=== PATIENT | female | born 1985 | race Caucasian/White ===

== ENCOUNTER 2023-07-15 11:06 | Outpatient (CLI) | payer BC, SELFPAY ==
[2023-07-15 18:09] LABS: Chloride 105 mmol/L (98-107); Sodium 140 mmol/L (136-145)
[2023-07-15 18:11] LABS: Amylase 63 U/L (30-110)
[2023-07-15 18:12] LABS: Alanine Aminotransferase 40 U/L (12-78); Albumin Level 4.5 g/dl (3.5-5.0); Albumin/Globulin Ratio 1.6 (1.1-1.8); Alkaline Phosphatase 70 U/L (38-126); Aspartate Amino Transferase 29 U/L (14-36); Bilirubin,Total 0.6 mg/dl (0.2-1.3); Blood Urea Nitrogen 9 mg/dl (7-17); Carbon Dioxide 30 mmol/L (22.0-30.0); Estimated Glomerular Filt Rate 113 ml/min (>60); GFR (African American) 137 ML/MIN (>60); Globulin 2.8 g/dL (1.3-3.2); Glucose 82 mg/dl (74-100); Lipase 72 U/L (23-300); Total Protein,Serum 7.3 g/dl (6.3-8.2)
[2023-07-15 18:23] LABS: Basophils # 0.1 K/mm3 (0-0.2); Basophils % 1.3 % (0.1-2.0); Eosinophils # 0.1 K/mm3 (0.0-0.4); Eosinophils % 1.5 % (0.1-12.0); Hematocrit 44.5 % (37.0-47.0); Hemoglobin 14.6 g/dL (12.2-16.2); Lymphocytes # 2.8 K/mm3 (0.7-4.5); Lymphocytes % 31.6 % (10-50); Mean Corpuscular HGB Conc 32.8 g/dL (31.8-35.4); Mean Corpuscular Hemoglobin 30.5 pg (27.0-31.2); Mean Corpuscular Volume 93.1 fl (81-99); Mean Platelet Volume 8.3 fl (7.4-10.4); Monocytes # 0.5 K/mm3 (0.1-1.0); Monocytes % 5.9 % (1.7-9.3); Neutrophils # 5.2 K/mm3 (1.8-7.8); Neutrophils % 59.7 % (37.0-80.0); Platelet Count 330 K/mm3 (142-424); Red Blood Count 4.78 M/mm3 (4.20-5.40); Red Cell Distribution Width 13.1 % (11.5-17.5); White Blood Count 8.7 K/mm3 (4.8-10.8)
[2023-07-15 18:43] LABS: Thyroid Stimulating Hormone 2.81 uIU/mL (0.465-4.68)
[2023-07-15 19:59] LABS: Vitamin B12 588 pg/mL (239-931)
== END 2023-07-15 23:59 ==
LOC: LAB.DROPOF 07-21 11:06
PROVIDERS: PCP Nurse Practitioner; Visit Provider Nurse Practitioner
DX: R10.13 Epigastric pain (principal); R10.9 Unspecified abdominal pain; K21.9 Gastro-esophageal reflux disease without esophagitis; Z87.898 Personal history of other specified conditions; Z79.899 Other long term (current) drug therapy
CPT/HCPCS: 80053; 82150; 82607; 83690; 84443; 85025; 87086

== ENCOUNTER 2023-07-16 19:11 | Outpatient (CLI) | payer BC, SELFPAY ==
[2023-07-19 13:37] LABS: H. pylori Stool Ag, EIA Negative (Negative)
== END 2023-07-16 23:59 ==
LOC: LAB.DROPOF 19:12
PROVIDERS: PCP Nurse Practitioner; Visit Provider Nurse Practitioner
DX: R10.13 Epigastric pain (principal)
CPT/HCPCS: 87338

== ENCOUNTER 2023-07-22 09:16 | Outpatient (CLI) | payer BC, SELFPAY ==
--- NOTE | 2023-07-22 09:16 | US_ITS ---
FINAL REPORT CLINICAL HISTORY: epigastric pain, history ulcer, GERD FINDINGS: RIGHT UPPER QUADRANT ULTRASOUND Sonographic images of the right upper quadrant were obtained. The pancreas is partially obscured.The liver has an unremarkable appearance. There are gallstones in the dependent portion of the gallbladder. The common duct measures 2 mm. Limited images of the right kidney are normal. IMPRESSION: Cholelithiasis. Reviewed, Interpreted and Dictated by Ravi Sommer MD Transcribed by Ami Salazar Authenticated and [facility]
== END 2023-07-22 23:59 ==
LOC: RAD 09:16
PROVIDERS: PCP Nurse Practitioner; Visit Provider Nurse Practitioner
DX: R10.13 Epigastric pain (principal); K21.9 Gastro-esophageal reflux disease without esophagitis; Z87.898 Personal history of other specified conditions
CPT/HCPCS: 76705

== ENCOUNTER 2023-08-20 08:43 | Day surgery (SDC) | payer BC, SELFPAY ==
[2023-08-20] VITALS (11 sets, daily range): BP systolic 117–146; BP diastolic 64–97; PULSE 66–85; RESP 14–18; TEMP 36.1–43; O2SAT 90–100; BMI 30.9
--- NOTE | 2023-08-20 09:21 | P.PNANES_ITS ---
[facility] Disclaimer: The information contained in this section may have been updated after the patient was seen, as this information can be updated by other users. Medical History Left flank pain GERD (gastroesophageal reflux disease) History of ulcer disease Epigastric pain Surgical History (Updated 08/20/23 @ 08:57 by Reva Guillen RN) History of hysterectomy Hx of hysterectomy Family History Other Anemia Asthma Bleeding disorder Cancer Heart attack Hyperlipidemia Hypertension Kidney disease Thyroid disorder Social History Smoking Status: Current every day smoker tobacco type: e-cigarettes alcohol intake: current alcohol intake frequency: holidays/special occasions only substance use type: denies use current occupational status: employed Travel in the last 8 weeks: None [facility] Anesthesia Checklist Patient Identification Patient Identification: Arm Band Structural Data Admitted From: Home Planned Operative Procedure/s: Laparoscopic Cholecystectomy Consent for Planned Operative Procedure(s) Verified: Yes Verified Documents: Surgical Consent and History and Physical NPO Status Verified Time NPO: 00:00 Additional verifications Anesthesia Reactions: No Airway Assessment Mallampati Score:: Class II C-Spine Mobility Assessed: Yes TMJ Mobility Assessed: Yes Dentition: Good Dentition Neurological Assessment Level of Consciousness: Awake, Alert and Appropriate Anesthesia Plan Anesthesia Risk discussed: Yes Anesthesia Plan: Verified ASA Class: II Anesthesia Type: General
[2023-08-20] MEDS: LACTATED RINGERS 1000ML 1,000 ML 25 ML IV (09:25)
[2023-08-20] MEDS: LIDOCAINE 1% 20ML MDV 20 ML (10:31)
[2023-08-20] MEDS: CEFAZOLIN SODIUM 1 GM in 0.9 % SODIUM CHLORIDE 50 ML IV (10:31)
--- NOTE | 2023-08-20 10:37 | EXP.OP.NOTE ---
Date of procedure: 08/20/23 Pre-op Diagnosis:: Chronic calculus cholecystitis Post-op Diagnosis:: Same Procedure performed:: Laparoscopic cholecystectomy Surgeon:: Osorio Kirkpatrick MD SYSTEMS TECHNOLOGIST:: Xavier Winters Anesthesia: GETA Estimated blood loss (mL): 15 Operative findings:: Moderate pericholecystic fat stranding Operative note:: After informed consent was obtained, the patient was taken to the operating room and placed in the supine position. General anesthesia was induced and the abdomen was prepped and draped in a sterile fashion. After infiltration with local anesthetic an infraumbilical incision was made. A Veress needle was placed in position. The abdomen was insufflated. A 5 mm optical trocar was placed in position. Under direct visualization, a 12 mm trocar was placed in the subxiphoid position and 2 additional 5 mm trocars were placed in the right upper quadrant. The gallbladder was elevated up and over the liver margin. The tissue around the cystic duct was carefully dissected. 3 clips were placed proximally and the duct was transected with harmonic whitney. Harmonic whitney were then utilized to dissect the gallbladder away from the liver margin with careful attention to the control of the cystic artery. The gallbladder was placed in a retrieval bag and removed through the subxiphoid trocar site. The right upper quadrant was thoroughly irrigated. No active bleeding or bile leak was noted. Fascia at the subxiphoid trocar site was reapproximated utilizing the NeoClose device. The remaining trocars were removed. All wounds were irrigated and skin was closed with 4-0 Monocryl in a subcuticular fashion. Steri-Strips were applied. The patient's anesthetic agents were reversed and extubation was completed prior to transfer to recovery in stable condition. Condition: stable Disposition: PACU Specimens:: Gallbladder Complications:: No immediate
--- NOTE | 2023-08-20 10:47 | P.PNANES_ITS ---
[facility] Anesthesia Record Part I Anesthesia Record I Intake, IV Amount: 1,800 Hydration: Adequate Estimated blood loss (mL): 0 Urine output (mL): 0 Blood Pressure: 144/97 SaO2: 93 Pulse Rate: 74 Airway Patency: Patent Respiratory Rate: 14 Temperature: 97.5 F Patient is:: Awake and Stable Stable to PACU at:: 10:45
[2023-08-20] MEDS: MEPERIDINE 25MG/ML 1ML SYRINGE 25 MG IV (10:58)
[2023-08-20] MEDS: MORPHINE 2MG/ML SYRINGE 2 MG IV (11:03)
--- NOTE | 2023-08-20 12:28 | EXP.ANES.II ---
[facility] Anesthesia Record Part II Anesthesia Record Part II Discharge Time: 11:15 Destination: Surgical Day Care (OP Surgery) PACU nurse assessment reviewed?: Yes Patient Condition:: Good Anesthesia Complications:: None Swallowing reflex intact?: Yes Airway Patency: Patent Cyanosis?: No Blood Pressure: 123/64 SaO2: 100 Respiratory Rate: 16 Pulse Rate: 72 Temperature: 97 F Mental Status: Alert & Oriented Pain level:: 6 Nausea and/or vomitting:: None Intake, IV Amount: 0 Hydration: Adequate
== END 2023-08-20 11:45 | disposition home or self-care (01) ==
PROVIDERS: PCP Nurse Practitioner; Visit Provider Surgery
PROC: 0FT44ZZ Resection of Gallbladder, Percutaneous Endoscopic Approach (ICD-10-PCS; CPT 47562; principal; 2023-08-20 10:15)
DX: K81.2 Acute cholecystitis with chronic cholecystitis (principal)
CPT/HCPCS: 47562; 96374; J2405; J2710

== ENCOUNTER 2023-09-02 09:43 | Outpatient (CLI) | payer BC, SELFPAY ==
[2023-09-02 10:05] VITALS: BP 129/81; PULSE 76; RESP 18; TEMP 36.8; O2SAT 99
[2023-09-02] MEDS: KETOROLAC 30MG/ML VIAL 15 MG IM (10:05)
[2023-09-02] MEDS: ONDANSETRON 4MG ODT 4 MG (10:19)
== END 2023-09-02 10:50 | disposition home or self-care (01) ==
LOC: INF 09:47
PROVIDERS: PCP Nurse Practitioner; Visit Provider Surgery
DX: R10.13 Epigastric pain (principal); K80.12 Calculus of gallbladder with acute and chronic cholecystitis without obstruction; G89.18 Other acute postprocedural pain
CPT/HCPCS: 96372

== ENCOUNTER 2023-09-10 06:03 | Day surgery (SDC) | payer BC, SELFPAY ==
[2023-09-09 10:54] VITALS: BMI 30.9
[2023-09-10] VITALS (9 sets, daily range): BP systolic 107–122; BP diastolic 69–79; PULSE 63–74; RESP 16–18; TEMP 36.2–36.9; O2SAT 94–100
[2023-09-10] MEDS: LACTATED RINGERS 1000ML 1,000 ML 25 ML IV (06:23)
--- NOTE | 2023-09-10 06:59 | HMH.SCOPE ---
Procedure: Date: 09/10/23 Patient Date of :: 1985 Procedure Performed:: Esophagogastroduodenoscopy with biopsy Indications:: Epigastric pain Nausea History of peptic ulcer disease Performing Provider:: Osorio Kirkpatrick MD Referring Provider:: . Sedation:: Monitored anesthesia care Procedure:: After informed consent was obtained the patient was taken to the endoscopy suite. Sedation ensued after the patient was transferred to the left lateral decubitus position. Pulse, blood pressure, and oxygen saturation were monitored throughout the procedure. The endoscope was advanced beyond the duodenal bulb. Retroflexion within the gastric lumen was accomplished. The gastroscope was carefully removed and the patient was transferred to recovery in stable condition. Please see findings and specimens below for detail. Findings:: Mildly tortuous esophagus Mild/moderate distal gastritis Mild proximal duodenitis Specimens:: Antral biopsy Recommendations:: Follow-up pathology Continue proton pump inhibition CBC/CMP/amylase/lipase ordered today (note recent laparoscopic cholecystectomy) Consider UGI/SBFT Consider gastric emptying scan Consider gastroenterology evaluation Consider CT abdomen/pelvis with contrast Complications:: No immediate Estimated blood obtained (mL): 1 Colonoscopy Component Colonoscopy Component Was a colonoscopy performed during today's procedure?: No
--- NOTE | 2023-09-10 07:36 | EXP.ANES.CKL ---
[facility] Disclaimer: The information contained in this section may have been updated after the patient was seen, as this information can be updated by other users. Medical History Epigastric pain Left flank pain GERD (gastroesophageal reflux disease) History of ulcer disease Surgical History History of laparoscopic cholecystectomy History of hysterectomy Hx of hysterectomy Family History Other Anemia Asthma Bleeding disorder Cancer Heart attack Hyperlipidemia Hypertension Kidney disease Thyroid disorder Social History Smoking Status: Former smoker tobacco type: e-cigarettes alcohol intake: never substance use type: denies use current occupational status: employed Travel in the last 8 weeks: None caffeine: No [facility] Anesthesia Checklist Patient Identification Patient Identification: Arm Band Structural Data Admitted From: Home Planned Operative Procedure/s: EGD Consent for Planned Operative Procedure(s) Verified: Yes Verified Documents: Surgical Consent and History and Physical NPO Status Verified Time NPO: 00:00 Additional verifications Anesthesia Reactions: No Hx Blood Transfusions: No Airway Assessment Mallampati Score:: Class II C-Spine Mobility Assessed: Yes TMJ Mobility Assessed: Yes Dentition: Good Dentition Neurological Assessment Level of Consciousness: Awake, Alert and Appropriate Anesthesia Plan Anesthesia Risk discussed: Yes Anesthesia Plan: Verified ASA Class: I Anesthesia Type: MAC
--- NOTE | 2023-09-10 07:38 | SUR.PHASEII ---
lab at bedside for blood work ordered by Dr. Kirkpatrick.
[2023-09-10 08:02] LABS: Basophils # 0.1 K/mm3 (0-0.2); Basophils % 1.3 % (0.1-2.0); Eosinophils # 0.1 K/mm3 (0.0-0.4); Eosinophils % 2.5 % (0.1-12.0); Hematocrit 39.9 % (37.0-47.0); Hemoglobin 12.8 g/dL (12.2-16.2); Lymphocytes # 2.1 K/mm3 (0.7-4.5); Lymphocytes % 37.3 % (10-50); Mean Corpuscular Hemoglobin 29.4 pg (27.0-31.2); Mean Platelet Volume 7.8 fl (7.4-10.4); Monocytes # 0.3 K/mm3 (0.1-1.0); Monocytes % 5.1 % (1.7-9.3); Neutrophils # 3.1 K/mm3 (1.8-7.8); Neutrophils % 53.9 % (37.0-80.0); Platelet Count 293 K/mm3 (142-424); Red Blood Count 4.34 M/mm3 (4.20-5.40); Red Cell Distribution Width 13.3 % (11.5-17.5); White Blood Count 5.7 K/mm3 (4.8-10.8)
[2023-09-10 08:15] LABS: Alanine Aminotransferase 26 U/L (12-78); Albumin/Globulin Ratio 1.4 (1.1-1.8); Alkaline Phosphatase 67 U/L (38-126); Amylase 65 U/L (30-110); Anion Gap 11.6 mEq/L (5-15); Aspartate Amino Transferase 24 U/L (14-36); Bilirubin,Total 0.8 mg/dl (0.2-1.3); Blood Urea Nitrogen 9 mg/dl (7-17); Calcium 9.1 mg/dl (8.4-10.2); Carbon Dioxide 26 mmol/L (22.0-30.0); Chloride 105 mmol/L (98-107); Creatinine Clearance Estimated 167 mL/min (50-200); Estimated Glomerular Filt Rate 113 ml/min (>60); GFR (African American) 137 ML/MIN (>60); Globulin 2.8 g/dL (1.3-3.2); Glucose 106 mg/dl (74-100); Lipase 71 U/L (23-300); Potassium 3.6 mmoL/L (3.5-5.1); Sodium 139 mmol/L (136-145); Total Protein,Serum 6.8 g/dl (6.3-8.2)
== END 2023-09-10 08:29 | disposition home or self-care (01) ==
PROVIDERS: PCP Nurse Practitioner; Visit Provider Surgery
PROC: 0DJ08ZZ Inspection of Upper Intestinal Tract, Via Natural or Artificial Opening Endoscopic (ICD-10-PCS; CPT 43235; principal; 2023-09-10 07:00)
DX: R10.13 Epigastric pain (principal); R11.0 Nausea; Z87.11 Personal history of peptic ulcer disease; K22.89 Other specified disease of esophagus; K29.70 Gastritis, unspecified, without bleeding; K29.80 Duodenitis without bleeding; K31.89 Other diseases of stomach and duodenum
CPT/HCPCS: 43239; 36415; 80053; 82150; 83690; 85025

== ENCOUNTER 2023-09-25 09:50 | Outpatient (CLI) | payer BC, SELFPAY ==
--- NOTE | 2023-09-25 09:51 | FL_ITS ---
FINAL REPORT CLINICAL HISTORY: dysphagia, pt feels like food gets stuck 2.38 min DAP 1737.99 FINDINGS: UPPER GI WITH SBFT HISTORY: Abdominal pain, nausea. PROCEDURE: The patient ingested barium. Effervescent crystals were also administered. Spot and overhead films were obtained. Additional barium was administered for a SBFT. Number of images: 19 Fluoro time: 1 minute 43 seconds DAP: 2664.00 uGym2. FINDINGS: UGI: The esophagus is normal. There is no hiatal hernia. There is no gastroesophageal reflux. A 13 mm barium tablet passes through the esophagus and into the stomach without delay. Peristalsis is normal. The rugal fold pattern of the stomach is normal. The duodenal bulb is normal. SBFT: The customer experience analyst film is normal. There is no evidence of obstruction. The mucosal fold pattern is normal. The terminal ilium is normal. IMPRESSION: Normal UGI/SBFT. Films reviewed , interpreted and dictated by Dr. Thorpe. Transcribed by Fritz Field PA-C Reviewed, Interpreted and Dictated by Alvaro Thorpe MD Transcribed by MELISSA Trivedi Authenticated and [facility]
--- NOTE | 2023-09-25 09:51 | FL_ITS ---
FINAL REPORT CLINICAL HISTORY: pain, burning sensation, hx of [place] 1 mnth ago 1.43 min DAP 2664.00 FINDINGS: UPPER GI WITH SBFT HISTORY: Abdominal pain, nausea. PROCEDURE: The patient ingested barium. Effervescent crystals were also administered. Spot and overhead films were obtained. Additional barium was administered for a SBFT. Number of images: 19 Fluoro time: 1 minute 43 seconds DAP: 2664.00 uGym2. FINDINGS: UGI: The esophagus is normal. There is no hiatal hernia. There is no gastroesophageal reflux. A 13 mm barium tablet passes through the esophagus and into the stomach without delay. Peristalsis is normal. The rugal fold pattern of the stomach is normal. The duodenal bulb is normal. SBFT: The project management manager film is normal. There is no evidence of obstruction. The mucosal fold pattern is normal. The terminal ilium is normal. IMPRESSION: Normal UGI/SBFT. Films reviewed , interpreted and dictated by Dr. Thorpe. Transcribed by Fritz Field PA-C. Reviewed, Interpreted and Dictated by Ravi Sommer MD Transcribed by MELISSA Trivedi Authenticated and [facility]
[2023-09-25] MEDS: DIATRIZOATE MEG 66% & DIATRIZOATE NA 10% 30ML UDC 15 ML PO (10:31)
[2023-09-25] MEDS: E-Z-GASII EFFERVESCENT GRANULES;1PK 1 EACH PO (10:31)
[2023-09-25] MEDS: BARIUM SULFATE (E-Z-HD 340GM);135ML BOTTLE 135 ML PO (10:31)
[2023-09-25] MEDS: BARIUM SULFATE(LIQUID E-Z-PAQUE);355ML BOTTLE 355 ML PO (10:31)
== END 2023-09-25 23:59 | disposition home or self-care (01) ==
LOC: RAD 09:51
PROVIDERS: PCP Nurse Practitioner; Visit Provider Surgery
DX: R10.13 Epigastric pain (principal); K21.9 Gastro-esophageal reflux disease without esophagitis; R11.0 Nausea
CPT/HCPCS: 74220; 74246; 74248

== ENCOUNTER 2023-10-06 09:47 | Outpatient (CLI) | payer BC, SELFPAY ==
--- NOTE | 2023-10-06 09:47 | NM_ITS ---
FINAL REPORT TECHNIQUE: 0.53 Millicuries of technetium 99m sulfur colloid was ingested with 2 eggs, toast and water. CLINICAL HISTORY: nausea, BLOATING 10:00AM 0.53 MCI TC SULFUR COLLOID INJ INTO 2 EGGS, TOAST AND WATER FINDINGS: GASTRIC EMPTYING SCAN Static images show normal emptying of the stomach into the small bowel. Based on the time activity curve, the estimated half-emptying time 127 minutes minutes. IMPRESSION: Abnormally long gastric emptying study. Reviewed, Interpreted and Dictated by Zay Dunbar III, MD Transcribed by Ami Salazar Authenticated and [facility]
[2023-10-06] MEDS: TC99M SULF.COLLOID;1 DOSE (UP TO 20 MCI) IV (10:04)
== END 2023-10-06 23:59 | disposition home or self-care (01) ==
LOC: RAD 09:47
PROVIDERS: PCP Nurse Practitioner; Visit Provider Surgery
DX: R10.13 Epigastric pain (principal); K21.9 Gastro-esophageal reflux disease without esophagitis
CPT/HCPCS: 78264; A9541

== ENCOUNTER 2023-10-09 09:20 | Emergency (ER) | payer BC, SELFPAY ==
--- NOTE | 2023-10-09 09:19 | ECG_ITS ---
APPROVED REPORT Exam: Resting ECG HR:81 bpm ECG Measurements Heart Rate 81 AXES CA 171 P 45 QRSd 85 QRS 2 QT 363 T 4 QTc 400 Conclusion SINUS RHYTHM WITH SINUS ARRHYTHMIA LOW QRS VOLTAGE IN PRECORDIAL LEADS [QRS DEFLECTION < 1.0 mV IN CHEST LEADS] BORDERLINE ECG Electronically signed by : NELSON TRAN, 10/10/2023 07:20:14
[2023-10-09 09:20] VITALS: BP 157/101; PULSE 83; RESP 18; TEMP 36.7; O2SAT 99; BMI 29.2
--- NOTE | 2023-10-09 09:23 | XR_ITS ---
FINAL REPORT CLINICAL HISTORY: chest pain COMPARISON: None FINDINGS: A single portable view of the chest was obtained. The heart size and pulmonary vascularity are within normal limits. The mediastinum is within normal limits. There is a medial right lower thorax opacity, atelectasis versus a prominent fat pad. There is slight elevation of the right hemidiaphragm. The bony thorax is intact. IMPRESSION: Medial right lower thorax opacity, atelectasis versus a prominent fat pad. Follow-up radiographs may be helpful. Otherwise no active chest disease. Reviewed, Interpreted and Dictated by Zay Dunbar III, MD Transcribed by Brianda Ramriez Authenticated and . [facility]
--- NOTE | 2023-10-09 09:25 | HMH.EDGENADL ---
Discharge Plan Disposition Patient Disposition: Home, Self-Care Condition: Good Prescriptions Prescriptions: New lidocaine HCl [Lidocaine Viscous] 2 % solution 1 applic mucous membrane BID PRN (Reason: pain) 5 Days Qty: 100 0RF No Action metoclopramide HCl [Reglan] 5 mg tablet 5 mg PO QAC Qty: 90 0RF Rx Instructions: administer 30 minutes before meals sucralfate 1 gram tablet 1 g PO QAC Qty: 90 2RF ondansetron HCl 4 mg tablet 4 mg PO DAILY Qty: 15 0RF Voquezna 20 mg tablet 20 mg PO DAILY Qty: 30 0RF omeprazole 40 mg capsule,delayed release(DR/EC) 40 mg PO DAILY Qty: 30 2RF fexofenadine [Frannie Allergy] 60 mg Tablet 60 mg PO DAILY hyoscyamine sulfate 0.125 mg tablet See Rx Instructions .ROUTE .COMPLEX PRN (Reason: .) Rx Instructions: TAKE 1 TABLET BY MOUTH FOUR TIMES DAILY NEEDED FOR DIARRHEA OR ABDOMINAL CRAMPS Referrals Follow up/Referrals: Kerry Quintanilla APRN [Primary Care Provider] - See instructions Activity Restrictions/Add. Instructions Additional Instructions/Restrictions: Please continue to use the medications that you have previously been prescribed for suspected gastroparesis, Carafate, Quinsair, omeprazole, Reglan. I have prescribed an additional medication to use as needed that you can use for breakthrough pain that is a numbing medication for your stomach. Please follow-up with the GI doctors on Thursday. Please return with any new or worsening symptoms. Clinical Impressions Clinical Impression: Acute chest pain, Epigastric pain Instructions Patient Instructions: DI for Epigastric Pain Discharge ED Provider: Jun Cassidy General Adult HPI General Chief complaint: Chest Pain Stated complaint: Chest Pain, Dizzy Time Seen by Provider: 10/09/23 09:22 History of Present Illness HPI narrative: The patient presents with chest pain, lightheadedness, and stomach pain that began around 6:00 AM this morning. The pain started as dull but has since worsened. She has experienced similar issues in the past, but this episode has not resolved. The pain is located in the center of the chest and does not radiate. The patient describes the pain as sharp at times, with a wave-like sensation, sometimes lingering and then feeling like a squeezing sensation. No specific factors have been identified that alleviate or exacerbate the pain. The patient also reports nausea and vomiting, with mouth watering as if she had vomited. She had gallbladder surgery at the end of July and was recently diagnosed with gastroparesis. The patient had an appointment with Dr. Conway on Thursday and was prescribed new medication, which she has not yet started due to pharmacy issues. The patient denies any fever or chills and did not feel sick the day before the visit. Please note that above description of symptoms, in this electronic medical record under categorization of recalled from ER triage doctor by RN are reflective of an initial nursing assessment, however, is not reflective of my full history and physical exam that was personally taken and clarified. Consequentially, this preceding description of symptoms, which may include the patient's categorized chief complaint in the EMR, do not reflect my personal clinical impression, and the ultimate description of history of present illness and patient stated complaints should be deferred to this section of the note. Unless stated otherwise or congruent with this section of the note, additional signs, symptoms, or incongruence should be interpreted as inaccurate with my clinical impression. Related Data Home Medications Medication Instructions Recorded Confirmed fexofenadine 60 mg tablet (Frannie 60 mg PO DAILY 08/20/23 10/07/23 Allergy) hyoscyamine sulfate 0.125 mg tablet See Rx Instructions .Route 09/09/23 10/07/23 .COMPLEX PRN . Previous Rx's Medication Instructions Recorded sucralfate 1 gram tablet 1 g PO QAC #90 tabs 07/15/23 omeprazole 40 mg capsule,delayed 40 mg PO DAILY #30 caps 07/23/23 release ondansetron HCl 4 mg tablet 4 mg PO DAILY #15 tabs 09/02/23 vonoprazan 20 mg tablet (Voquezna) 20 mg PO DAILY #30 tabs 09/16/23 metoclopramide HCl 5 mg tablet 5 mg PO QAC #90 tabs 10/07/23 (Reglan) lidocaine HCl 2 % mucosal solution 1 applic mucous membrane BID PRN 10/09/23 (Lidocaine Viscous) pain 5 days #100 mL Allergies Allergy/AdvReac Type Severity Reaction Status Date / Time hydrocodone Allergy Severe Altered Verified 10/07/23 10:56 Sense of Taste [facility] Disclaimer: The information contained in this section may have been updated after the patient was seen, as this information can be updated by other users. Medical History Epigastric pain Left flank pain GERD (gastroesophageal reflux disease) History of ulcer disease Surgical History History of esophagogastroduodenoscopy (EGD) History of laparoscopic cholecystectomy History of hysterectomy Hx of hysterectomy Family History Other Anemia Asthma Bleeding disorder Cancer Heart attack Hyperlipidemia Hypertension Kidney disease Thyroid disorder Social History Smoking Status: Current every day smoker tobacco type: e-cigarettes alcohol intake: never substance use type: denies use current occupational status: employed Travel in the last 8 weeks: None caffeine: No ROS Obtained: Yes other As per HPI Physical Exam General General appearance: alert and in no apparent distress Head Head exam: atraumatic and normocephalic Eye Eye exam: Present normal appearance Neck Neck exam: Present normal inspection Chest Chest inspection: Present normal inspection and symmetric chest wall rise Respiratory Respiratory exam: Present normal lung sounds bilaterally; Absent respiratory distress Cardiovascular Cardiovascular exam: Present regular rate and normal rhythm Abdominal Exam Abdominal exam: Present soft Neurological Exam Neurological exam: Present alert and oriented X3 Psychiatric Psychiatric exam: Present normal affect and normal mood Skin Skin exam: Present warm and dry Other Other exam information: Mild epigastric, left upper quadrant tenderness to palpation, no guarding, rebound tenderness, rigidity, distention, no chest wall reproducible tenderness to palpation. Lungs clear to auscultation bilaterally. Medical Decision Making Medical Records Medical records reviewed: Yes I reviewed the patient's medical records. [place] Inquiry Pt receiving controlled substance: No Vital Signs: 10/09/23 09:20 10/09/23 09:31 10/09/23 10:01 Temperature 98.1 F Temperature Source Oral Pulse Rate 79 89 Pulse Rate [Right] 83 Respiratory Rate 18 Blood Pressure 142/73 H 124/89 Blood Pressure [Right Arm] 157/101 H Blood Pressure Mean [Right Arm] 119 02 Sat by Pulse Oximetry 99 100 97 Oxygen Delivery Method Room Air Room Air 10/09/23 11:09 Temperature 98.1 F Temperature Source Oral Pulse Rate 75 Pulse Rate [Right] Respiratory Rate 16 Blood Pressure 101/62 L Blood Pressure [Right Arm] Blood Pressure Mean [Right Arm] 02 Sat by Pulse Oximetry Oxygen Delivery Method Room Air Lab Data Lab Results 10/09/23 09:30: WBC 7.1, RBC 4.84, Hgb 14.4, Hct 43.8, MCV 90.6, MCH 29.7, MCHC 32.8, RDW 13.4, Plt Count 297, MPV 7.9, Neut % (Auto) 66.8, Lymph % (Auto) 25.5, [place] % (Auto) 4.9, Eos % (Auto) 1.6, Baso % (Auto) 1.1, Neut # (Auto) 4.7, Lymph # (Auto) 1.8, [place] # (Auto) 0.4, Eos # (Auto) 0.1, Baso # (Auto) 0.1, Sodium 142, Potassium 4.5, Chloride 106, Carbon Dioxide 27, Anion Gap 13.5, BUN 15, Creatinine 0.80, Estimated Creat Clear 118, Estimated GFR 81, Est GFR ( Amer) 98, Glucose 102 H, Calcium 9.2, Total Bilirubin 0.7, AST 31, ALT 41, Alkaline Phosphatase 77, Troponin I < 0.01, Total Protein 8.0, Albumin 4.6, Globulin 3.4 H, Albumin/Globulin Ratio 1.4, Lipase 61, Serum HCG, Qual Negative 10/09/23 09:30 10/09/23 09:30 Orders (Tests/Meds): ED MEDICATIONS Discontinued Medications Generic Name Dose Route Start Last Admin Trade Name Freq PRN Reason Stop Dose Admin Aspirin 325 mg 10/09/23 09:23 10/09/23 09:36 Aspirin 325mg Tablet PO 10/09/23 09:24 325 mg ONCE ONE Administration Belladonna Alkaloids 60 ml 10/09/23 09:23 10/09/23 09:36 Belladonna Alkaloids 60 Ml Ml PO 10/09/23 09:24 60 ml ONCE ONE Administration Ondansetron HCl 4 mg 10/09/23 09:23 10/09/23 09:36 Ondansetron 4mg/2ml Vial IV 10/09/23 09:24 4 mg ONCE ONE Administration ORDERS Category Date Time Status XR chest portable Stat Exams 10/09/23 09:23 Completed CBC w/Auto Diff [Complete Blood Count Auto Diff] Stat Lab 10/09/23 09:30 Completed CMP [Comprehensive Metabolic Panel] Stat Lab 10/09/23 09:30 Completed HCG Qualitative, Serum Stat Lab 10/09/23 09:30 Completed Lipase Stat Lab 10/09/23 09:30 Completed Troponin I Q3H Lab 10/09/23 09:30 Completed Medical Decision Narrative: Patient with history and exam per above presenting for evaluation of reported chest pain, as well as epigastric abdominal pain Diagnoses considered include ACS, gastroparesis, PUD, low clinical evidence of suspicion for surgical pathology, patient is without sufficient evidence of signs and symptoms concerning for pulmonary embolism to warrant further workup. ED workup and treatment included: ED MEDICATIONS Discontinued Medications Generic Name Dose Route Start Last Admin Trade Name Freq PRN Reason Stop Dose Admin Aspirin 325 mg 10/09/23 09:23 10/09/23 09:36 Aspirin 325mg Tablet PO 10/09/23 09:24 325 mg ONCE ONE Administration Belladonna Alkaloids 60 ml 10/09/23 09:23 10/09/23 09:36 Belladonna Alkaloids 60 Ml Ml PO 10/09/23 09:24 60 ml ONCE ONE Administration Ondansetron HCl 4 mg 10/09/23 09:23 10/09/23 09:36 Ondansetron 4mg/2ml Vial IV 10/09/23 09:24 4 mg ONCE ONE Administration ORDERS Category Date Time Status XR chest portable Stat Exams 10/09/23 09:23 Completed CBC w/Auto Diff [Complete Blood Count Auto Diff] Stat Lab 10/09/23 09:30 Completed CMP [Comprehensive Metabolic Panel] Stat Lab 10/09/23 09:30 Completed HCG Qualitative, Serum Stat Lab 10/09/23 09:30 Completed Lipase Stat Lab 10/09/23 09:30 Completed Troponin I Q3H Lab 10/09/23 09:30 Completed Labs were independently interpreted by me, significant for no acute findings My clinical impression at this time is most consistent with known history of gastroparesis. Patient has mild to moderate improvement of symptoms upon repeat evaluation and again exhibits benign abdominal exam. She has upcoming appointment to discuss results of swallow study and is deemed stable for discharge at this time. I discussed my clinical impression with patient and answered all questions. At this time, the evidence for any other entities in the differential is insufficient to warrant any further testing or ED observation. This was explained to the patient. The patient was advised that persistent or worsening symptoms require further evaluation. I confirmed the patient's understanding of this discussion. Critical Care Critical Care Time Critical Care Time: No
[2023-10-09 09:31] VITALS: BP 142/73; PULSE 79; O2SAT 100
--- NOTE | 2023-10-09 09:35 | PC.NURSE ---
in room talking with patient at this time.
[2023-10-09] MEDS: BELLADONNA ALKALOIDS 60 ML ML PO (09:36)
[2023-10-09] MEDS: ASPIRIN 325MG TABLET 325 MG PO (09:36)
[2023-10-09] MEDS: ONDANSETRON 4MG/2ML VIAL 4 MG IV (09:36)
[2023-10-09 09:41] LABS: Basophils # 0.1 K/mm3 (0-0.2); Basophils % 1.1 % (0.1-2.0); Eosinophils # 0.1 K/mm3 (0.0-0.4); Eosinophils % 1.6 % (0.1-12.0); Hematocrit 43.8 % (37.0-47.0); Hemoglobin 14.4 g/dL (12.2-16.2); Lymphocytes # 1.8 K/mm3 (0.7-4.5); Lymphocytes % 25.5 % (10-50); Mean Corpuscular HGB Conc 32.8 g/dL (31.8-35.4); Mean Corpuscular Hemoglobin 29.7 pg (27.0-31.2); Mean Corpuscular Volume 90.6 fl (81-99); Mean Platelet Volume 7.9 fl (7.4-10.4); Monocytes # 0.4 K/mm3 (0.1-1.0); Monocytes % 4.9 % (1.7-9.3); Neutrophils # 4.7 K/mm3 (1.8-7.8); Neutrophils % 66.8 % (37.0-80.0); Platelet Count 297 K/mm3 (142-424); Red Blood Count 4.84 M/mm3 (4.20-5.40); Red Cell Distribution Width 13.4 % (11.5-17.5); White Blood Count 7.1 K/mm3 (4.8-10.8)
[2023-10-09 09:42] LABS: Chloride 106 mmol/L (98-107); Potassium 4.5 mmoL/L (3.5-5.1); Sodium 142 mmol/L (136-145)
[2023-10-09 09:44] LABS: Alanine Aminotransferase 41 U/L (12-78); Aspartate Amino Transferase 31 U/L (14-36); Blood Urea Nitrogen 15 mg/dl (7-17); Creatinine Clearance Estimated 118 mL/min (50-200); Estimated Glomerular Filt Rate 81 ml/min (>60); GFR (African American) 98 ML/MIN (>60)
[2023-10-09 09:45] LABS: Albumin Level 4.6 g/dl (3.5-5.0); Albumin/Globulin Ratio 1.4 (1.1-1.8); Alkaline Phosphatase 77 U/L (38-126); Anion Gap 13.5 mEq/L (5-15); Bilirubin,Total 0.7 mg/dl (0.2-1.3); Calcium 9.2 mg/dl (8.4-10.2); Carbon Dioxide 27 mmol/L (22.0-30.0); Globulin 3.4 g/dL (1.3-3.2); Glucose 102 mg/dl (74-100); Lipase 61 U/L (23-300)
[2023-10-09 10:01] VITALS: BP 124/89; PULSE 89; O2SAT 97
[2023-10-09 10:03] LABS: Troponin I < 0.01 ng/ml (0.00-0.034)
[2023-10-09 10:10] LABS: HCG Qualitative, Serum Negative (Negative)
[2023-10-09 11:09] VITALS: BP 101/62; PULSE 75; RESP 16; TEMP 36.7; O2SAT 100
== END 2023-10-09 11:16 | disposition home or self-care (01) ==
PROVIDERS: Emergency Provider Emergency Medicine; PCP Nurse Practitioner
DX: R07.89 Other chest pain (principal); R10.13 Epigastric pain
CPT/HCPCS: 71045; 80053; 83690; 84484; 84703; 85025; 93005; 96374; 99284; J2405

== ENCOUNTER 2024-05-23 18:36 | Outpatient (CLI) | payer OTHER, SELFPAY ==
[2024-05-23 18:42] LABS: Coronavirus 19, PCR Not Detected (NotDetected); Human Rhinovirus Not Detected (NotDetected); Influenza B, PCR Not Detected (NotDetected); Respiratory Syncytial Virus Not Detected (NotDetected)
[2024-05-24 01:49] LABS: Influenza A, PCR Detected (NotDetected)
== END 2024-05-23 23:59 | disposition home or self-care (01) ==
LOC: LAB.DROPOF 18:36
PROVIDERS: PCP Nurse Practitioner; Visit Provider Nurse Practitioner
DX: J32.9 Chronic sinusitis, unspecified (principal); Z72.0 Tobacco use
CPT/HCPCS: 87631

== ENCOUNTER 2024-11-14 09:00 | Outpatient (RCR) | payer OTHER, SELFPAY ==
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
== END 2024-11-14 23:59 | disposition home or self-care (01) ==
LOC: PT 09:00
PROVIDERS: PCP Nurse Practitioner; Visit Provider Otolaryngology
DX: S13.9XXA Sprain of joints and ligaments of unspecified parts of neck, initial encounter (principal)
CPT/HCPCS: 97014; 97110; 97140; 97162; 97530; G0283

== ENCOUNTER 2024-11-14 10:00 | Outpatient (RCR) | payer OTHER, SELFPAY ==
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
== END 2024-11-14 23:59 | disposition home or self-care (01) ==
LOC: ST 10:00
PROVIDERS: PCP Nurse Practitioner; Visit Provider Otolaryngology
DX: S03.00XA Dislocation of jaw, unspecified side, initial encounter (principal)
CPT/HCPCS: 92610

== ENCOUNTER 2025-01-02 09:45 | Outpatient (CLI) | payer OTHER, SELFPAY ==
[2025-01-02 14:53] LABS: Coronavirus 19, PCR Not Detected (NotDetected); Influenza A, PCR Not Detected (NotDetected); Influenza B, PCR Not Detected (NotDetected)
--- OUTSIDE RECORDS SUMMARY | 2025-01-03 09:26 | XMS_ITS | Clinical Summary ---
Author Organization [facility] Address [address] [facility] [place] [address] Phone Care Team Providers Care Diesel Electrician Name Role Phone Waleska Bautista MD Primary Care Provider Allergies Active Allergy Reactions Criticality Noted Date Comments Hydrocodone Anaphylaxis 05/31/2009 Medications cetirizine (ZYRTEC) 10 mg Oral Tablet Take by mouth daily. Active naproxen (NAPROSYN) 250 mg Oral Tablet Take 250 mg by mouth 2 times daily. Active magnesium hydroxide (MILK OF MAGNESIA) 400 mg/5 mL Oral Suspension Take 5 mL by mouth daily. Active celecoxib (CELEBREX) 200 mg Oral Capsule Take 200 mg by mouth 2 times daily. Active pantoprazole (PROTONIX) 40 mg Oral Tablet, Delayed Release (E.C.)Indication s:GERD without esophagitis Take 1 Tablet by mouth daily. 90 Tablet 1 4 Active Additional Information Patient not taking.Reason: Therapy Completed, Reported on 10/20/2023 Brompheniramine- Pseudoeph-DM 2-30-10 mg/5 mL Oral SyrupIndications :Acute bacterial sinusitis Take 10 mL by mouth every 4 hours as needed (Cough, Nasal Congestion, Allergies). 240 mL 4 Active Additional Information Patient not taking.Reason: Therapy Completed, Reported on 10/20/2023 ondansetron (ZOFRAN) 4 mg Oral Tablet 4 mg. 4 Active sucralfate (CARAFATE) 1 gram Oral Tablet Take 1 g by mouth Before every meal. Active VOQUEZNA 20 mg Oral Tablet Take 1 Tablet by mouth daily. 4 Active fexofenadine (LAURA) 60 mg Oral Tablet 60 mg. 4 Active metoclopramide HCl (REGLAN) 5 mg Oral Tablet Take 5 mg by mouth. 4 Active Active Problems Patient Care Coordination No te Formatting of this note migh t be different from the original. 06/19/14 no show warning letter sent/[facility] audit completed by Monica Nicole RN on 10/06/2022. Problem Noted Date Diagnosed Date Postoperative nausea 10/20/2023 Left flank pain 10/20/2023 History of ulcer disease 10/20/2023 GERD (gastroesophageal reflux disease) Right upper quadrant pain 10/20/2023 Epigastric pain 10/20/2023 Chronic constipation 10/20/2023 Calculus of gallbladder with acute and chronic cholecystitis without obstruction 10/20/2023 Enlarged uterus 01/05/2020 Overview (01/05/2020): Added automatically from request for surgery [id number] Menometrorrhagia 01/05/2020 Overview (01/05/2020): Added automatically from request for surgery [id number] Severe dysmenorrhea 01/05/2020 Overview (01/05/2020): Added automatically from request for surgery [id number] Seasonal allergies 11/17/2013 Immunizations Immunization Administration Dates Next Due Influenza Patient Reported 02/10/2018 Influenza Vaccine Quadrivalent PF 02/10/2018,,01/04/2014 Surgical History Surgery Date Site/Laterality Comments TUBAL LIGATION HYSTERECTOMY 02/01/2020 Bilateral DAVINCI ROBOTIC TOTAL HYSTERECTOMY BILATERAL SALPINGECTOMY ; Surgeon: Richie Trinh MD; Location: [facility] OR; Service: Robotics CHOLECYSTECTOMY 08/20/2023 N/A Medical History Medical History Date Comments Ulcer stomach- in high school Anemia Allergic state Kidney stone Tubal ligation status Heartburn reflux Headache sinus and migrai zhane Motion sickness GERD (gastroesophageal reflux disease) 10/20/2023 Family History Medical History Relation Name Comments Clotting Disorder Father Cancer Mother Cervical High Blood Pressure Mother High Blood Pressure Sister Relation Name Status Comments Father Alive Mother Alive Sister Social History Tobacco Use Types Packs/Day Years Used Date Smoking Tobacco: Former Cigarettes 0.3 4 0 04/27/2009 - 07/27/2023 Smokeless Tobacco: Never Tobacco Cessation:Counseling Given: No Alcohol Use Standard Drinks/Week Comments Yes 0 (1 standard drink = 0.6 oz pur e alcohol) occasionally PHQ-2 Answer Date Recorded PHQ-2 Total Score 0 11/20/2020 Sexually Active Control Partners Comments Yes Other-see comments Male Nuva Ring Comments No Sex and Gender Information Value Date Recorded Sex Assigned at Not on file Legal Sex Female 11:24 PM EDT Gender Identity Not on file Sexual Orientation Not on file Obstetrics History Para Term AB IAB SAB Ectopic Multiple Livin g Live Births 2 1 1 1 Date Outcome GA Total Labor Labor/2nd/3rd Weight Sex Type Anes PTL Lynne A1 A5 Name Clin Para Vag-Spo nt SAB Last Filed Vital Signs Vital Sign Reading Time Taken Comments Blood Pressure 112/84 10/20/2023 5:49 PM EDT Pulse 88 10/20/2023 5:49 PM EDT Temperature 36.7 C (98 F) 10/20/2023 5:49 PM EDT Respiratory Rate 20 10/20/2023 5:49 PM EDT Oxygen Saturation 97% 10/20/2023 5:49 PM EDT Inhaled Oxygen Concentration - - Weight 82 kg (180 lb 12.8 oz) 10/20/2023 5:49 PM EDT Height 162.6 cm (5' 4 ) 10/20/2023 5:49 PM EDT Body Mass Index 31.03 10/20/2023 5:49 PM EDT Plan of Treatment Health Maintenance Due Date Last Done Comments DTaP/TDaP/Td (1 - Tdap) 2005 Hepatitis B Vaccine (1 of 3 - 19+ 3-dose series) 2005 Annual Wellness Exam 11/10/2014 11/10/2013 (Postpone d) COVID-19 Vaccine ( - 2023- season) 2024 Influenza Vaccine (#1) 2024 8, 02/10/2018, 02/13/2016, Additional history exists Meningococcal B Vaccine Aged Out No l onger eligible based on patient's age to complete this topic Pneumococcal Vaccine 0-49 Aged Out No longer eligible based on patient's age to complete this topic Goals Goal Patient Goal Type Associated Problems Recent Progress Patient-Stated? Author Blood Pressure < 140/90 Blood Pressure 112/84(2023 5:49 PM EDT) Tamika Chen CCMA Maintain a healthy diet, exercise regularly and maintain an ideal body weight General No Tamika Cutler CCMA Stay Tobacco Free Lifestyle No Tamika Cutler CCMA Insurance ANTHEM PPO ANTHEM PPO * Guarantor: Nurys Alexander Account Type Relation to Patient Date of Phone Billing Address [place] Personal Family Self Care Teams Diesel Electrician Relationship Specialty Start Date End Date Waleska Bautista MD [address] [place] [address] PCP - General Family Medicine 11/10/13
== END 2025-01-02 23:59 ==
LOC: LAB.DROPOF 01-03 09:13
PROVIDERS: PCP Nurse Practitioner; Visit Provider Nurse Practitioner
DX: J06.9 Acute upper respiratory infection, unspecified (principal)
CPT/HCPCS: 87636